=== PATIENT | male | born 1950 ===

== ENCOUNTER 2017-07-07 02:09 | Emergency (ER) | payer MEDICARE, OTHER ==
[2017-07-07] MEDS: ALPRAZOLAM 0.25 MG TAB PO (09:45)
== END 2017-07-07 14:35 | disposition left against medical advice (07) ==
LOC: E/R 02:09
DX: F10.920 Alcohol use, unspecified with intoxication, uncomplicated (principal); E11.9 Type 2 diabetes mellitus without complications; R93.0 Abnormal findings on diagnostic imaging of skull and head, not elsewhere classified; C61 Malignant neoplasm of prostate
CPT/HCPCS: 70450; 99284-25